=== PATIENT | female | born 2000 | race African-American/Black ===

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

== ENCOUNTER 2022-11-08 08:16 | Outpatient (NON) | payer OTHER, SELFPAY | END 2022-11-08 08:17 | disposition home or self-care (01) | PROVIDERS: Visit Provider Internal Medicine Gastroenterology | DX: Z80.0 Family history of malignant neoplasm of digestive organs (principal) | CPT/HCPCS: 88305 ==

== ENCOUNTER 2022-11-08 11:34 | Day surgery (SDC) | payer OTHER, SELFPAY ==
[2022-11-02 13:36] VITALS: BMI 23.3
--- NOTE | 2022-11-08 10:14 | P.PNAN_ITS ---
Anes - Initial Pre Proc Eval Procedure: Operation Date: 11/08/22 13:30 Proposed Procedures p Diagnostic Colonoscopy - Blaze Cool MD Date/Time: 11/08/22 10:14 Surgeon: Blaze Cool MD Pre Op Diagnosis: Family HX Colon Cancer, Hemorrhage Anus and Rectum Patient Data Age: 22 Gender: F Height: 1.57 m Weight: 58 kg Allergies Allergy/AdvReac Type Severity Reaction Status Date / Time No Known Allergies Allergy Verified 11/08/22 12:20 Home Medications Medication Instructions Recorded Confirmed Type No Home Medications 10/19/22 11/08/22 History Patient hx anesthesia problems: none Family hx anesthesia problems: none Results Review: All pre-operative results and documents have been reviewed as part of the pre- operative evaluation. [facility] Past Medical History Medical History (Updated 10/19/22 @ 14:15 by Blaze Cool MD) Family history of colon cancer Hx of colonic polyps Loose stools Rectal bleeding Family History Family History Mother Carcinoma of colon Social History Social History Smoking status: Never smoker Alcohol intake: current Drinks per week: 5 Alcohol use details: social Substance use: current Substance use type: marijuana Last use: 11/01 Living arrangements: with family Spiritual care concerns: No Anes - Eval Final PreProcedure Day of Procedure 11/08/22 10:14 Patient weight: normal Heart: regular rate and rhythm Lungs: clear to auscultation and normal air movement Airway: Mallampati scale class II Neurological: alert and oriented Last oral intake: >/= 8 hours ASA classification: II Emergent: no Anesthetic plan: proceed Anesthesia type and monitoring: general GIVS and standard monitoring Results Review: All pre-operative results and documents have been reviewed as part of the pre- operative evaluation. Informed Consent: The patient's anesthetic plan and its attendant risks and benefits were d iscussed with the patient/family/POA. Questions were solicited and answers provided to the satisfaction of the patient/family/POA.
[2022-11-08 12:27] VITALS: BMI 21.9
--- NOTE | 2022-11-08 12:51 | WPDHPUPDATE1 ---
History and Physical Update Update Date/Time: 11/08/22 12:51 History and Physical has been reviewed, including an updated exam of the patient. There are NO changes in the patient's condition. Risks, benefits, and alternatives have been discussed and questions answered. Patient agrees to proceed with procedure.
[2022-11-08 12:52] VITALS: BP 113/67; PULSE 68; RESP 16; TEMP 37.2; O2SAT 100
[2022-11-08] MEDS: LACTATED RINGERS 1,000 ML 150 ML IV CONT (12:53)
[2022-11-08 13:08] VITALS: BP 100/57; PULSE 78; RESP 18; O2SAT 98
[2022-11-08 13:18] VITALS: BP 115/81; PULSE 75; RESP 16; O2SAT 99
--- NOTE | 2022-11-08 13:19 | WPDANESPN ---
Anes - Prog Note Post-Op Date/Time: 11/08/22 13:19 Cardiovascular status: normal Respiratory status: normal Airway patency: baseline Mental status: baseline Post-Op hydration status: normal Vital Signs: Last Vital Signs Temp 37.2 C 11/08/22 12:52 Pulse 68 11/08/22 12:52 Resp 16 11/08/22 12:52 BP 113/67 11/08/22 12:52 Pulse Ox 100 11/08/22 12:52 O2 Del Method Room Air 11/08/22 12:52 Pain Score (VAS): 0 Post-procedural complaints: none Patient Feedback: Patient satisfied with anesthetic care. Other Findings: Patient vital signs back to baseline. Patient denies nausea and vomiting. Patient's pain under control. Patient OK for discharge.
--- NOTE | 2022-11-08 13:22 | SUR.PHASEII ---
PT AWAKE AND ALERT. EATING AND DRINKING. DENIES PAIN. USING CELL PHONE.
[2022-11-08 13:28] VITALS: BP 110/72; PULSE 71; RESP 16; O2SAT 99
--- NOTE | 2022-11-08 13:40 | SUR.PHASEII ---
PT AWAKE AND ALERT. DENIES PAIN OR NAUSEA. STATES SISTER AND SIG OTHER ARE WORKING AND WONT BE HERE TO PICK PT UP UNTIL 1400. PT DRESSED AND READY FOR DISCHARGE.
== END 2022-11-08 15:03 | disposition home or self-care (01) ==
PROVIDERS: Visit Provider Internal Medicine Gastroenterology
PROC: 0DJD8ZZ Inspection of Lower Intestinal Tract, Via Natural or Artificial Opening Endoscopic (ICD-10-PCS; CPT 45378; principal; 2022-11-08 13:30)
DX: Z80.0 Family history of malignant neoplasm of digestive organs (principal)
CPT/HCPCS: 45380